=== PATIENT | female | born 1975 | race Caucasian/White ===

== ENCOUNTER 2018-01-11 19:59 | Outpatient (CLI) | payer OTHER ==
--- NOTE | 2018-01-12 11:28 | Ultrasound Report ---
THYROID ULTRASOUND: 01/11/2018 CLINICAL INDICATION: Dysphagia. TECHNIQUE: Real-time scanning was performed with hospital insurance representative static images obtained. FINDINGS: The right lobe measures 5.3 x 1.4 x 0.9 cm, and the left lobe measures 4.5 x 1.2 x 0.9 cm. In the medial right lobe, there is a 1.3 x 1.2 x 0.4 cm spongiform nodule, without internal vascularity. No adenopathy is seen. IMPRESSION: VERY LOW SUSPICION SPONGIFORM NODULE IN THE MEDIAL RIGHT LOBE. FNA IS NOT RECOMMENDED, BASED ON CASIMIRO CRITERIA. TD: 01/12/2018 11:20
== END 2018-01-11 20:00 | disposition home or self-care (01) ==
LOC: DI 19:59
PROVIDERS: ATTEND Physician Assistant
DX: R47.02 Dysphasia (principal); E04.1 Nontoxic single thyroid nodule
CPT/HCPCS: 76536

== ENCOUNTER 2018-01-19 08:00 | Outpatient (CLI) | payer OTHER ==
[2018-01-19 19:47] LABS: THYROID STIMULATING HORMONE 1.63 uIU/mL (0.34-5.60)
[2018-01-19 19:49] LABS: FREE T4 (FREE THYROXINE) 0.73 ng/dL (0.58-1.64)
== END 2018-01-19 08:01 | disposition home or self-care (01) ==
LOC: LAB.WCP 08:00
PROVIDERS: ATTEND Family Medicine
DX: E04.1 Nontoxic single thyroid nodule (principal)
CPT/HCPCS: 36415; 84439; 84443; 84481

== ENCOUNTER 2018-05-28 08:25 | Emergency (ER) | payer OTHER ==
[2018-05-28] MEDS ORDERED: PROCHLORPERAZINE 10 MG/2 ML VIAL IVP STA (08:52)
[2018-05-28] MEDS ORDERED: KETOROLAC 60 MG/2 ML VIAL IVP STA (08:52)
[2018-05-28] MEDS ORDERED: DEXAMETHASONE 10 MG/ML VIAL IVP STA (08:52)
[2018-05-28] MEDS ORDERED: SODIUM CHLORIDE 0.9% 1,000 ML IV ONE (08:52)
[2018-05-28] MEDS ORDERED: diphenhydrAMINE INJ 50 MG/ML VIAL IVP STA (08:53)
--- NOTE | 2018-05-28 08:58 | ED Physician Documentation ---
PD HPI HEADACHE - Stated complaint Stated Complaint: MIGRAINE - Chief complaint Chief Complaint: Neuro - History obtained from History obtained from: Patient - History of Present Illness Timing - onset: How many weeks ago (2) Timing - onset during: Rest Timing - duration: Weeks (2) Timing - details: Gradual onset, Still present Worst headache ever?: No: Worst headache ever? Location: Front, Left Quality: Throbbing Associated symptoms: Nausea, Vomiting. No: Fever, Stiff neck, Weakness, Numbness, Syncope, Seizure, Eye pain, Vision changes Improved by: Rest, Dark room, Quiet Worsened by: Light, Noise, Moving Contributing factors: No: Anticoagulated Similar symptoms before: Diagnosis (migraine) Recently seen: Other - Additional information Additional information: 6o y/o female with a headache X 2 weeks. She has a history of migraine and this usually only lasts up to 2 days. She has had some vomiting yesterday. She has been in to see her PMD and was given a nasal spray for nasal congestion with URI and this has not resolved the headache. She has been in to the dentist last month to have a filling replaced and continues to have a pain on the tooth that was worked on since on the right. She also had an episode prior to the onset of the headache with a sharp pain in the left uatsdin that felt like something "popped" in her head but that pain was short lived. Review of Systems Constitutional: denies: Fever, Chills, Myalgias Eyes: denies: Decreased vision Ears: denies: Ear pain Nose: reports: Rhinorrhea / runny nose, Congestion Throat: reports: Dental pain / toothache. denies: Sore throat Cardiac: denies: Chest pain / pressure, Palpitations Respiratory: reports: Cough. denies: Dyspnea GI: reports: Nausea, Vomiting. denies: Abdominal Pain, Constipation, Diarrhea : denies: Dysuria, Frequency Skin: denies: Rash Musculoskeletal: reports: Neck pain. denies: Back pain, Extremity pain Neurologic: reports: Headache. denies: Generalized weakness, Focal weakness, Numbness, Difficulty speaking, Confused, Altered mental status, Head injury, LOC PD PAST MEDICAL HISTORY - Allergies Allergies/Adverse Reactions: Allergies Allergy/AdvReac Type Severity Reaction Status Date / Time No Known Drug Allergies Allergy Verified 05/28/18 08:32 PD ED PE NORMAL - Vitals Vital signs reviewed: Yes (normal ) - General General: Alert and oriented X 3, No acute distress, Well developed/nourished - HEENT HEENT: Atraumatic, PERRL, EOMI, Ears normal, Moist mucous membranes, Pharynx benign, Dentition benign, Other (exam of the tooth with pain is unremarkable. (#4)) - Neck Neck: Supple, no meningeal sign, No bony TTP, No adenopathy, Other (There is tension in the trapezius at the insertion to the occiput. ) - Cardiac Cardiac: RRR, No murmur - Respiratory Respiratory: No respiratory distress, Clear bilaterally - Abdomen Abdomen: Soft, Non tender - Back Back: No CVA TTP, No spinal TTP - Derm Derm: Normal color, Warm and dry, No rash - Extremities Extremities: No deformity, No edema - Neuro Neuro: Alert and oriented X 3, hospital unit coordinator 2-12 intact, No motor deficit, No sensory deficit, Normal speech Eye Opening: Spontaneous Motor: Obeys Commands Verbal: Oriented GCS Score: 15 - Psych Psych: Normal mood, Normal affect Results - Vitals Vitals: Vital Signs - 24 hr 05/28/18 08:30 Heart Rate 78 Respiratory 14 Rate Blood Pressure 124/72 O2 Saturation 100 Oxygen O2 Source Room air - Rads (name of study) CT head without Radiology: Prelim report reviewed (Impression: 1. Negative noncontrast brain CT. No intracranial hemorrhage or space-occupying lesion.), EMP read indepedently, See rad report Procedures - IVC sono (time) 0850 Bedside IVC sono: IVC measures (cm) (1.49), Euvolemia PD MEDICAL DECISION MAKING - ED course Complexity details: reviewed results, re-evaluated patient, considered differential, d/w patient ED course: 42-year-old female with a history of migraines has had a for 2 weeks. She had some unusual initializing symptoms and CT scan of the head was obtained which is unremarkable. She is treated here in the emergency department for migraine headache with a liter of saline 10 mg of Compazine 25 mg of Benadryl 30 mg of Toradol and 10 mg of dexamethasone. - Sepsis Event Vital Signs: Vital Signs - 24 hr 05/28/18 08:30 Heart Rate 78 Respiratory 14 Rate Blood Pressure 124/72 O2 Saturation 100 Oxygen O2 Source Room air Departure - Departure Disposition: 01 Home, Self Care Clinical Impression: Migraine Qualifiers: Migraine type: without aura Status migrainosus presence: without status migrainosus Intractability: not intractable Qualified Code(s): G43.009 - Migraine without aura, not intractable, without status migrainosus Condition: Stable Instructions: ED Headache Migraine Follow-Up: Julianne Prescott DO [Primary Care Provider] -
--- NOTE | 2018-05-28 09:27 | CT Report ---
Reason: persistent headache/vomiting Procedure Date: 05/28/2018 Accession Number: [id number] / [id number] Procedure: CT - Head W/O CPT Code: FULL RESULT: EXAM: CT HEAD EXAM DATE: 05/28/2018 09:08 AM. CLINICAL HISTORY: Persistent headache/vomiting. COMPARISON: None. TECHNIQUE: Multiaxial CT images were obtained from the foramen magnum to the vertex. Reformats: Sagittal and coronal. IV contrast: None. In accordance with CT protocol optimization, one or more of the following dose reduction techniques were utilized for this exam: automated exposure control, adjustment of mA and/or KV based on patient size, or use of iterative reconstructive technique. FINDINGS: Parenchyma: No intraparenchymal hemorrhage. No focal mass-effect, midline shift, or CT findings of acute infarction. Cottrell-white differentiation is distinct. Extraaxial Spaces: Normal. No subdural or epidural collections identified. Ventricles: Normal in size and position. Sinuses and Orbits: Imaged paranasal sinuses, orbits, and mastoids show no significant abnormality. Bones: No evidence of fracture or calvarial defect. IMPRESSION: 1. Negative noncontrast brain CT. No intracranial hemorrhage or space-occupying lesion. RADIA
[2018-05-28 10:12] VITALS: BP 110/70
== END 2018-05-28 10:12 | disposition home or self-care (01) ==
LOC: ED 08:25
DX: G43.009 Migraine without aura, not intractable, without status migrainosus (principal)
CPT/HCPCS: 70450; 96361; 96374; 96375; 99283; 99284; J1200

== ENCOUNTER 2021-07-02 07:00 | Outpatient (CLI) | payer OTHER ==
[2021-07-02 11:46] LABS: BASOPHILS % (AUTO) 0.5 %; EOSINOPHILS # (AUTO) 0.1 10^3/uL (0.0-0.7); EOSINOPHILS % (AUTO) 2.1 %; HCT - HEMATOCRIT 38.1 % (37.0-47.0); LYMPHOCYTES # (AUTO) 2.2 10^3/uL (1.5-3.5); LYMPHOCYTES % (AUTO) 38.6 %; MEAN CORPUSCULAR HEMOGLOBIN 26.5 pg (27.0-31.0); MEAN CORPUSCULAR HGB CONC 31.5 g/dL (32.0-36.0); MEAN CORPUSCULAR VOLUME 84.3 fL (81.0-99.0); MEAN PLATELET VOLUME 9.9 fL (7.9-10.8); MONOCYTES # (AUTO) 0.3 10^3/uL (0.0-1.0); MONOCYTES % (AUTO) 4.8 %; NEUTROPHILS % (AUTO) 53.8 %; PLT - PLATELET COUNT 268 10^3/uL (130-450); RED BLOOD COUNT 4.52 10^6/uL (4.20-5.40); RED CELL DISTRIBUTION WIDTH 13.4 % (12.0-15.0); WHITE BLOOD COUNT 5.6 x10^3/uL (4.8-10.8)
[2021-07-02 12:08] LABS: ALBUMIN 4.7 g/dL (3.2-5.5); ALBUMIN/GLOBULIN RATIO 1.7 (1.0-2.2); ALKALINE PHOSPHATASE 67 IU/L (42-121); ALT ALANINE AMINOTRANSFERASE 14 IU/L (10-60); AST ASPARTATE AMINOTRANSFERASE 16 IU/L (10-42); BILIRUBIN,TOTAL 0.7 mg/dL (0.2-1.0); BUN - BLOOD UREA NITROGEN 14 mg/dL (6-20); CALCIUM 9.6 mg/dL (8.5-10.3); CARBON DIOXIDE - CO2 25 mmol/L (21-32); CHLORIDE 107 mmol/L (101-111); CHOL/HDL RATIO 2.9 (<4.4); CHOLESTEROL 231 mg/dL; CREATININE 0.7 mg/dL (0.4-1.0); GFR - MDRD 91 (>89); GLUCOSE 104 mg/dL (70-100); HDL CHOLESTEROL 80 mg/dL; LDL CHOLESTEROL,CALCULATED 141 mg/dL; LDL/HDL RATIO 1.8 (<4.4); SODIUM 142 mmol/L (135-145); TOTAL PROTEIN 7.5 g/dL (6.7-8.2); TRIGLYCERIDES 52 mg/dL; VLDL CHOLESTEROL 10 mg/dL
[2021-07-02 12:13] LABS: THYROID STIMULATING HORMONE 1.81 uIU/mL (0.34-5.60)
== END 2021-07-02 23:59 | disposition home or self-care (01) ==
LOC: LAB.WCP 07:00
PROVIDERS: ATTEND Physician Assistant Medical
DX: Z00.00 Encounter for general adult medical examination without abnormal findings (principal); E55.9 Vitamin D deficiency, unspecified
CPT/HCPCS: 36415; 80053; 80061; 82306; 83721; 84443; 85025

== ENCOUNTER 2021-10-04 15:50 | Outpatient (CLI) | payer OTHER ==
--- NOTE | 2021-10-04 16:45 | Ultrasound Report ---
PROCEDURE: Head or Neck Soft Tissue INDICATIONS: THYROID NODULE TECHNIQUE: Real time scanning was performed of the neck region of interest, with image documentation . COMPARISON: None. FINDINGS: Index right thyroid isthmus nodule is slightly decreased in size, currently measuring 1.3 x 0.3 x 0.7 cm (previously 1.2 x 0.4 x 1.2). The nodule remains hypoechoic with no suspicious echogeni c foci. Otherwise normal appearance and size of the thyroid gland. IMPRESSION: Slightly decreased size of index nodule in the right thyroid isthmus. Reviewed by: Nelson Bullock MD on 10/04/2021 4:44 PM PST Approved by: Nelson Bullock MD on 10/04/2021 4:44 PM PST Station ID: [id number]
== END 2021-10-04 15:51 | disposition home or self-care (01) ==
LOC: DI 15:50
PROVIDERS: ATTEND Physician Assistant Medical
DX: E04.1 Nontoxic single thyroid nodule (principal)

== ENCOUNTER 2023-11-24 11:09 | Outpatient (CLI) | payer OTHER | END 2023-11-24 11:10 | disposition home or self-care (01) | LOC: LAB.N 11:09 | PROVIDERS: ATTEND Physician Assistant Medical | DX: Z71.89 Other specified counseling (principal) | CPT/HCPCS: 81599 ==